=== PATIENT | female | born 1960 | race Two or more races ===

== ENCOUNTER 2019-07-26 17:02 | Inpatient (IN) | payer MEDICAID, OTHER ==
[~2019-07-26] VITALS: Ht 172.7 cm; Wt 79.6 kg
[2019-07-26 17:34] LABS: BASOPHILS % (AUTO) 0.7 % (0.0-2.0); EOSINOPHILS % (AUTO) 4.2 % (1.0-6.0); HEMATOCRIT 42.9 % (36-46); LYMPHOCYTES # (AUTO) 3.8 K/uL (1.0-4.8); LYMPHOCYTES % (AUTO) 39.4 % (22.0-44.0); MEAN CORPUSCULAR HEMOGLOBIN 34.3 pg (26.0-34.0); MEAN CORPUSCULAR HGB CONC 34.8 G/dL (31.0-37.0); MEAN CORPUSCULAR VOLUME 99 fL (80-100); MONOCYTES # (AUTO) 0.6 K/uL (0.1-1.0); MONOCYTES % (AUTO) 6.3 % (2.0-9.0); NEUTROPHILS # (AUTO) 4.8 K/uL (1.8-7.7); NEUTROPHILS % (AUTO) 49.4 % (40.0-70.0); PLATELET COUNT (AUTO) 211 K/uL (150-450); RED BLOOD CELL COUNT(AUTO) 4.36 MIL/uL (4.00-5.20); RED CELL DISTRIBUTION WIDTH 13.7 % (11.5-14.5)
[2019-07-26 17:49] LABS: LACTIC ACID 1.1 mmol/L (0.4-2.0)
[2019-07-26 17:54] LABS: ANION GAP 14 mmol/L (8-16); CALCIUM, TOTAL 9.1 mg/dL (8.8-10.5); CARBON DIOXIDE 24 mmol/L (22-29); CHLORIDE 107 mmol/L (98-107); CREATININE 0.88 mg/dL (0.60-1.30); GLOMERULAR FILTR. RATE CALC > 60 mL/min (>60); GLUCOSE,RANDOM 101 mg/dL (70-110); POTASSIUM 3.9 mmol/L (3.5-5.1); SODIUM SERUM 145 mmol/L (136-145); UREA NITROGEN, BLOOD 9 mg/dL (7-18)
[2019-07-26 18:08] LABS: B-TYPE NATRIURETIC PEPTIDE 26 pg/mL (0-100)
[2019-07-26 18:16] LABS: ALANINE AMINOTRANSFERASE 47 U/L (12-78); ALBUMIN 4.4 g/dL (3.4-5.0); ALKALINE PHOSPHATASE 90 U/L (46-116); ASPARTATE AMINOTRANSFERASE 43 U/L (15-37); BILIRUBIN,TOTAL 0.4 mg/dL (0.1-1.0); CREATINE KINASE, TOTAL ONLY 178 U/L (26-192); LIPASE 143 U/L (73-393); TOTAL PROTEIN, SERUM 7.9 g/dL (6.4-8.2)
[2019-07-26 20:12] LABS: APPEARANCE,URINE CLOUDY (CLEAR); BILIRUBIN,URINE NEGATIVE (NEGATIVE); GLUCOSE, URINE (UA) NEGATIVE (NEGATIVE); KETONES,URINE NEGATIVE (NEGATIVE); LEUKOCYTE ESTERASE ,URINE NEGATIVE (NEGATIVE); NITRATE,URINE NEGATIVE (NEGATIVE); OCCULT BLOOD,URINE NEGATIVE (NEGATIVE); PH,URINE 5.5 (5.0-8.0); PROTEIN,URINE NEGATIVE (NEGATIVE); UROBILINOGEN,URINE 0.2 mg/dL (<=1.0)
[2019-07-26 20:17] LABS: AMPHET/METH SCREEN,URINE POSITIVE (NEGATIVE); BARBITURATE SCREEN, URINE NEGATIVE (NEGATIVE); BENZODIAZEPINES SCREEN,URINE POSITIVE (NEGATIVE); CANNABINOID SCREEN,URINE POSITIVE (NEGATIVE); COCAINE SCREEN,URINE NEGATIVE (NEGATIVE); METHADONE SCREEN, URINE NEGATIVE (NEGATIVE); OPIATE SCREEN,URINE NEGATIVE (NEGATIVE)
[2019-07-26 20:21] LABS: PHENCYCLIDINE SCREEN,URINE NEGATIVE (NEGATIVE)
[2019-07-26 20:41] LABS: BACTERIA,URINE Moderate /HPF (None Seen); RBC,URINE None Seen /HPF (0-2); SQUAMOUS EPITHELIAL CELL,UR Many /LPF (None Seen); WBC,URINE 0-2 /HPF (0-5)
[2019-07-26 20:52] VITALS: BP 142/84
[2019-07-26] MEDS: LORazepam 2 MG TABLET PO PRN (20:55)
[2019-07-26] MEDS: HALOPERIDOL 5 MG TABLET PO PRN (20:55)
[2019-07-27 07:37] LABS: CHOL/HDL RATIO 4.4 (3.9-5.7)
[2019-07-27] MEDS ORDERED: ALBUTEROL SULFATE HFA 90 MCG/PUFF 8 GM INHALER IH PRN (08:30)
[2019-07-27] MEDS ORDERED: LOPERAMIDE HCL 2 MG CAPSULE PO PRN (08:30)
[2019-07-27] MEDS ORDERED: CloNIDine HCL 0.1 MG TABLET PO PRN (08:30)
[2019-07-27] MEDS ORDERED: BENZOCAINE/MENTHOL LOZENGE MM PRN (08:30)
[2019-07-27] MEDS ORDERED: ONDANSETRON HCL 4 MG TABLET PO PRN (08:30)
[2019-07-27] MEDS ORDERED: BACITRACIN 28.4 GM OINTMENT TP PRN (08:30)
[2019-07-27] MEDS ORDERED: DOCUSATE SODIUM 100 MG CAPSULE PO PRN (08:30)
[2019-07-27] MEDS ORDERED: ACETAMINOPHEN 325 MG TABLET PO PRN (08:30)
[2019-07-27] MEDS ORDERED: OMEPRAZOLE 20 MG CAPSULE PO PRN (08:30)
[2019-07-27] MEDS ORDERED: MAG HYDROX/AL HYDROX/SIMETH ES 30 ML SUSPENSION UDCUP PO PRN (08:30)
[2019-07-27] MEDS ORDERED: MAGNESIUM HYDROXIDE SUSPENSION 30 ML UDCUP PO PRN (08:30)
[2019-07-27] MEDS ORDERED: PETROLATUM,WHITE 28 GM JELLY TP PRN (08:30)
[2019-07-27 10:53] VITALS: BP 125/72
[2019-07-27] MEDS: IBUPROFEN 600 MG TABLET PO PRN (10:54)
[2019-07-27 17:28] VITALS: BP 130/89
[2019-07-28 05:18] VITALS: BP 157/99
[2019-07-28] MEDS: IBUPROFEN 600 MG TABLET PO PRN ×3 (06:05→12:42)
[2019-07-28 08:30] VITALS: BP 147/82
[2019-07-28] MEDS: SERTRALINE HCL 100 MG TABLET PO SCH (09:31)
[2019-07-28 11:23] VITALS: BP 136/79
[2019-07-28] MEDS: LORazepam 2 MG TABLET PO PRN (11:42)
[2019-07-28] MEDS: HALOPERIDOL 5 MG TABLET PO PRN (11:42)
[2019-07-28 12:42] VITALS: BP 136/79
[2019-07-28] MEDS: POLYMYXIN B/TRIMETHOPRIM 10 ML OPHTHALMIC SOLUTION OU SCH (17:01)
[2019-07-28 19:10] VITALS: BP 123/88
[2019-07-29 09:49] VITALS: BP 127/86
[2019-07-29] MEDS: SERTRALINE HCL 100 MG TABLET PO SCH (10:00)
[2019-07-29] MEDS: LORazepam 2 MG TABLET PO PRN ×2 (10:04→23:41)
[2019-07-29] MEDS: MINERAL OIL/PETROLATUM 120 GM CREAM TP PRN (10:16)
[2019-07-29] MEDS: POLYMYXIN B/TRIMETHOPRIM 10 ML OPHTHALMIC SOLUTION OU SCH ×2 (10:16→16:59)
[2019-07-29 10:18] VITALS: BP 134/81
[2019-07-29] MEDS: IBUPROFEN 600 MG TABLET PO PRN (10:18)
[2019-07-29 16:30] VITALS: BP 124/74
[2019-07-29] MEDS: SULFAMETHOX/TRIMETH DS 800-160 MG/TABLET PO SCH (16:59)
[2019-07-29] MEDS: ZOLPIDEM TARTRATE 10 MG TABLET PO PRN (20:14)
[2019-07-30 08:00] VITALS: BP 133/75
[2019-07-30] MEDS: SULFAMETHOX/TRIMETH DS 800-160 MG/TABLET PO SCH ×2 (09:26→16:19)
[2019-07-30] MEDS: SERTRALINE HCL 100 MG TABLET PO SCH (09:26)
[2019-07-30] MEDS: POLYMYXIN B/TRIMETHOPRIM 10 ML OPHTHALMIC SOLUTION OU SCH ×2 (09:28→16:23)
[2019-07-30 09:54] VITALS: BP 116/73
[2019-07-30] MEDS: IBUPROFEN 600 MG TABLET PO PRN ×2 (09:54→18:31)
[2019-07-30] MEDS: LORazepam 2 MG TABLET PO PRN ×3 (09:54→21:04)
[2019-07-30 16:00] VITALS: BP 115/73
[2019-07-30 16:19] VITALS: BP 121/82
[2019-07-30] MEDS: MINERAL OIL/PETROLATUM 120 GM CREAM TP PRN (16:32)
[2019-07-30 18:31] VITALS: BP 104/74
[2019-07-30] MEDS: ZOLPIDEM TARTRATE 10 MG TABLET PO PRN (19:52)
[2019-07-30 21:04] VITALS: BP 125/78
[2019-07-31 08:00] VITALS: BP 153/97
[2019-07-31] MEDS: SULFAMETHOX/TRIMETH DS 800-160 MG/TABLET PO SCH ×2 (08:23→16:04)
[2019-07-31] MEDS: POLYMYXIN B/TRIMETHOPRIM 10 ML OPHTHALMIC SOLUTION OU SCH ×2 (08:23→16:04)
[2019-07-31] MEDS: SERTRALINE HCL 100 MG TABLET PO SCH (08:23)
[2019-07-31] MEDS: IBUPROFEN 600 MG TABLET PO PRN ×2 (08:32→15:46)
[2019-07-31] MEDS: LORazepam 2 MG TABLET PO PRN ×2 (08:32→15:46)
[2019-07-31] MEDS: MINERAL OIL/PETROLATUM 120 GM CREAM TP PRN (08:32)
[2019-07-31] MEDS ORDERED: SERT100T12 PO (11:20)
[2019-07-31] MEDS ORDERED: POLYOS OU (11:24)
[2019-07-31] MEDS ORDERED: SULF1TAB42 PO (11:25)
[2019-07-31] MEDS: HALOPERIDOL 5 MG TABLET PO PRN (12:11)
[2019-07-31 15:46] VITALS: BP 103/66
[2019-07-31 16:58] VITALS: BP 103/66
[2019-08-01 08:28] VITALS: BP 122/68
[2019-08-01] MEDS: SULFAMETHOX/TRIMETH DS 800-160 MG/TABLET PO SCH ×2 (09:54→16:02)
[2019-08-01] MEDS: POLYMYXIN B/TRIMETHOPRIM 10 ML OPHTHALMIC SOLUTION OU SCH ×2 (09:54→16:03)
[2019-08-01] MEDS: SERTRALINE HCL 100 MG TABLET PO SCH (09:56)
[2019-08-01] MEDS: IBUPROFEN 600 MG TABLET PO PRN (09:57)
[2019-08-01] MEDS: LORazepam 2 MG TABLET PO PRN ×2 (09:58→16:46)
[2019-08-01] MEDS: MINERAL OIL/PETROLATUM 120 GM CREAM TP PRN (09:59)
[2019-08-01 16:46] VITALS: BP 120/78
[2019-08-01 17:20] VITALS: BP 93/66
[2019-08-01 18:46] VITALS: BP 118/76
[2019-08-01] MEDS: HALOPERIDOL 5 MG TABLET PO PRN (18:46)
[2019-08-01] MEDS: ZOLPIDEM TARTRATE 10 MG TABLET PO PRN (21:02)
[2019-08-02] MEDS: MINERAL OIL/PETROLATUM 120 GM CREAM TP PRN (08:29)
[2019-08-02] MEDS: POLYMYXIN B/TRIMETHOPRIM 10 ML OPHTHALMIC SOLUTION OU SCH (08:29)
[2019-08-02] MEDS: SERTRALINE HCL 100 MG TABLET PO SCH (08:32)
[2019-08-02] MEDS: SULFAMETHOX/TRIMETH DS 800-160 MG/TABLET PO SCH (08:32)
[2019-08-02] MEDS: IBUPROFEN 600 MG TABLET PO PRN (08:36)
== END 2019-08-02 09:35 | disposition home or self-care (01) | DRG 881 ==
LOC: EMS 17:02 → 3EI 20:30
PROVIDERS: ADMIT Psychiatry & Neurology Psychiatry; ATTEND Psychiatry & Neurology Psychiatry
DX: F32.9 Major depressive disorder, single episode, unspecified (principal); R45.851 Suicidal ideations; F10.129 Alcohol abuse with intoxication, unspecified; F15.10 Other stimulant abuse, uncomplicated; F17.200 Nicotine dependence, unspecified, uncomplicated; G47.00 Insomnia, unspecified; J44.9 Chronic obstructive pulmonary disease, unspecified; K21.9 Gastro-esophageal reflux disease without esophagitis; K59.00 Constipation, unspecified; K70.30 Alcoholic cirrhosis of liver without ascites; Z59.0 Homelessness; Z85.6 Personal history of leukemia
CPT/HCPCS: 83605; 87086; 93005; G0480